=== PATIENT | male | born 1950 | race Asian ===

== ENCOUNTER 2024-11-29 13:34 | Emergency (ER) | payer MEDICARE, SELFPAY ==
[2024-11-29 13:36] VITALS: BP 146/81
--- NOTE | 2024-11-29 14:18 | ED.GENMED ---
History of Present Illness
General
Chief Complaint: Musculo-Skeletal Complaint
Source: patient
Exam Limitations: none
Time Seen by Provider: 11/29/24 14:06
History of Present Illness
History of Present Illness:
74yoM with a history of hypertension presenting for evaluation of left calf pain. Patient recently returned home from a trip to the [place] yesterday. He drove a lot during his trip and reports driving 500 miles within a 9 day span. He had
a flight home from [place] yesterday. Patient started to notice some pain in his left calf yesterday while he was at the airport limping due to the pain. No direct trauma. He was seen at urgent care this afternoon and was sent to the ED for
concern for a DVT. Patient denies any chest pain or shortness of breath. Of note, patient is on Levaquin for a UTI. He denies any pain in the Achilles tendon. Patient is a pharmacist.
Past History
Past History
ED Past Medical History: HTN and Other (Thalassemia minor, M�ni�re's); Negative Hypercholesterolemia or IDDM
Social History
Tobacco: Non-smoker
Living: with family
Employment: Employed
Family History
Family History: Diabetes and CAD
Phy Exam
General Physical Exam
General Presentation: well appearing and no apparent distress
General Skin: warm and dry
General Habitus: normal
General Mental: alert
ENT Exam
ENT Exam: normocephalic
Pulmonary Exam
Pulmonary Exam: no respiratory distress
Neurological Exam
Neurological Exam: alert
V[place]ourt Coma Scale
Eye Opening: Spontaneous
Verbal Response: Oriented
Motor Response: Obeys Commands
GCS Total Score: 15
Musculoskeletal Exam
Musculoskeletal Exam: other (LLE is normal to inspection. No pitting edema or erythema. +Tenderness to posterior calf. 2+ DP pulse.)
Skin Exam
Skin Exam: normal color and warm/dry
Psychiatric Exam
Psychiatric Exam: normal mood/affect
Course
Orders/Labs/Results
Orders:
Orders
11/29/24 13:40
US Legs, Left [US Periph Venous LOWER Ext LT] Urgent
Comment:
Reason For Exam: calf swelling and pain
11/29/24 15:45
Complete Blood Count/With Diff Urgent
11/29/24 15:47
Basic Metabolic Panel Urgent
11/29/24 16:55
Apixaban [Eliquis] 10 mg PO ONCE ONE
Abnormal Lab Results
11/29/24 11/29/24
15:45 15:47
Hgb 11.9 L g/dL
(13.0-18.0)
Hct 36.4 L %
(39.0-52.0)
MCV 60.5 L fL
(80.0-94.0)
MCH 19.8 L pg
(27.0-31.0)
MCHC 32.7 L g/dL
(33.0-37.0)
RDW 19.0 H %
(11.5-14.5)
Abs Immat Gran (auto) 0.3 H 10^3/uL
(0-0.05)
Absolute Monos (auto) 1.1 H 10^3/uL
(0.1-0.6)
Immature Gran % 4.2 H %
(0-0.5)
Monocytes % 13.5 H %
(1.7-9.3)
Sodium 130 L mmol/L
(135-145)
11/29/24 15:45
11/29/24 15:47
Vital Signs
Initial and Last Documented VS:
Initial Vital Signs
Temp Pulse Resp BP Pulse Ox
98.1 F 60 16 146/81 100
11/29/24 13:36 11/29/24 13:36 11/29/24 13:36 11/29/24 13:36 11/29/24 13:36
Last Documented Vital Signs
Temp Pulse Resp BP Pulse Ox
98.1 F 60 16 139/77 98
11/29/24 13:36 11/29/24 13:36 11/29/24 13:36 11/29/24 16:00 11/29/24 16:30
MDM/Problems Addressed
Differential Diagnosis Includes:
74yoM here with L calf pain x 1 day. Recent trip to the [facility] out [place] and had a flight from [place] yesterday. Denies CP/SOB. VSS. He is well-appearing in no acute distress. There is calf tenderness on exam without pitting edema or skin
changes. LLE is neurovascularly intact. Differential diagnosis includes: DVT, musculoskeletal
Venous duplex obtained which shows occlusive thrombus within both duplicated left posterior tibial veins. No evidence of thrombus more proximally. Labs obtained and renal function normal. Sodium 130 which patient reports is chronic. He was given
a prescription for an Eliquis starter pack and first dose given in the ED. Advised follow-up PCP for further treatment. ED return precautions reviewed including chest pain and shortness of breath. Patient discharged in stable condition.
*Pulse Oximetry
SaO2: 100
Oxygen Mode of Delivery: Room air
Patient hypoxic: no (100%)
*Critical Care Note
Total Time (30-74mins, 75-104mins- exclusive of procedures): Not Applicable
ED Attending Note
-
Portions of this chart may have been created with voice recognition software.� Occasional wrong word or��sound alike� substitutions may have occurred due to the inherent limitations of voice recognition software.
Discharge Plan
Departure
Patient Disposition: Home (Routine Discharge)
Date of Disposition: 11/29/24
Time of Disposition: 16:55
Patient with high blood pressure during this ER visit?: No
Discharge Problem:
Acute deep vein thrombosis (DVT) of calf muscle vein of left lower extremity
Instructions: Deep vein thrombosis (blood clot in the leg), Apixaban
Prescriptions:
New
Eliquis DVT-PE Treat 30D Start 5 mg (74 tabs) tablets,dose pack
See Rx Instructions .ROUTE .COMPLEX Qty: 74 0RF
Rx Instructions:
orally per package directions
No Action
atenolol 25 MG tablet
25 mg PO DAILY
amlodipine 5 MG tablet
5 mg PO DAILY
aspirin 81 MG tablet,delayed release (DR/EC)
81 mg PO DAILY
meclizine 25 MG tablet
25 mg PO DAILY
omeprazole 20 MG capsule,delayed release(DR/EC)
20 mg PO DAILY
hydrochlorothiazide 25 MG tablet
25 mg PO DAILY
Referrals:
UNKNOWN,NO INTERVIEW [Family Provider]
Activity Restrictions/Additional Instructions:
Take Eliquis as prescribed.
Please call your family doctor on Monday for follow-up. Return to the ER with any worsening symptoms including chest pain, shortness of breath, uncontrolled bleeding.
Interventions
Interventions:
*Risk Screen - Suicide Last Done: 11/29/24 13:36
*General Assessment Last Done: 11/29/24 13:36
*Neglect/Abuse Screening Last Done: 11/29/24 14:22
*ED- Fall Risk Assessment Last Done: 11/29/24 14:22
*ED COVID-19 Vaccine History Last Done: 11/29/24 14:22
*Nursing Disposition Last Done: 11/29/24 17:16
ED-Musculoskeletal Assessment Last Done: 11/29/24 14:22
Discharge Date and Time
Discharge Date/Time: 11/29/24 17:16
Print Language: FINNISH
[2024-11-29 14:51] VITALS: BP 142/79
[2024-11-29 15:00] VITALS: BP 138/75
[2024-11-29 15:53] VITALS: BP 137/80
[2024-11-29 15:59] LABS: Hematocrit 36.4 % (39.0-52.0); Hemoglobin 11.9 g/dL (13.0-18.0); Mean Corp Hgb Conc. 32.7 g/dL (33.0-37.0); Mean Corpuscular Volume 60.5 fL (80.0-94.0); Nucleated Red Blood Cells % 0 % (-); Red Cell Dist. Width 19.0 % (11.5-14.5)
[2024-11-29 16:00] VITALS: BP 139/77
[2024-11-29 16:12] LABS: Blood Urea Nitrogen 18 mg/dl (9-20); Calcium 9.6 mg/dl (8.4-10.2); Carbon Dioxide 23 mmol/L (22-30); Chloride 101 mmol/L (98-107); Glucose 96 mg/dl (70-99); Potassium 4.7 mmol/L (3.5-5.1); Sodium 130 mmol/L (135-145); eGFR > 60.00
[2024-11-29 16:22] LABS: Platelet Count 292 10^3/uL (130-400)
[2024-11-29] MEDS: ELIQUIS 10 MG PO (17:06)
== END 2024-11-29 17:16 | disposition home or self-care (01) ==
LOC: EMR 13:34
PROVIDERS: Physician Assistant; EMERGENCY PHYSICIAN Emergency Medicine
DX: I82.442 Acute embolism and thrombosis of left tibial vein (principal); I10 Essential (primary) hypertension; D56.3 Thalassemia minor; Z79.01 Long term (current) use of anticoagulants; Z82.49 Family history of ischemic heart disease and other diseases of the circulatory system; Z83.3 Family history of diabetes mellitus
CPT/HCPCS: 99284; 80048; 85025; 93971

== ENCOUNTER → 2025-01-23 09:46 | Outpatient (REF) | payer MEDICARE, SELFPAY | LOC: RAD 09:46 | PROVIDERS: ATTENDING PHYSICIAN Physician Assistant Medical | DX: I82.402 Acute embolism and thrombosis of unspecified deep veins of left lower extremity (principal); M79.662 Pain in left lower leg | CPT/HCPCS: 93971 ==

== ENCOUNTER → 2025-04-03 11:44 | Outpatient (REF) | payer MEDICARE, SELFPAY | LOC: HWRAD 11:44 | PROVIDERS: ATTENDING PHYSICIAN Physician Assistant Medical | DX: M25.512 Pain in left shoulder (principal) | CPT/HCPCS: 73030 ==